=== PATIENT | female | born 1985 | race Caucasian/White ===

== ENCOUNTER → 2018-05-01 | Outpatient (CLI) | payer BC | LOC: MAMMO 15:49 | DX: Z12.31 Encounter for screening mammogram for malignant neoplasm of breast (principal) ==

== ENCOUNTER → 2019-02-13 | Outpatient (CLI) | payer BC ==
[2019-02-13 10:38] LABS: EOS # 0.1 (0.04-0.40); EOS % 2.4 % (1.0-5.0); HEMATOCRIT 42.3 % (37.0-47.0); HEMOGLOBIN 13.5 g/dL (12.5-16.0); LYMPH# 1.5 (1.50-4.00); MEAN CELL VOLUME 90 fl (78-100); MEAN CORPUSCULAR HEMOGLOBIN 29 pg (27-31); MEAN CORPUSCULAR HGB CONC 32 g/dL (33-37); MEAN PLATELET VOLUME 9.4 fl (7.4-10.4); MONO # 0.5 (0.20-0.80); NEU # 3.2 (1.40-6.50); PLATELET COUNT 192 K/mm3 (130-400); RED BLOOD COUNT 4.68 M/mm3 (4.10-5.30); RED CELL DISTRIBUTION WIDTH 12.2 % (11.5-14.5); WHITE BLOOD COUNT 5.4 K/mm3 (4.8-10.8)
[2019-02-13 10:50] LABS: PROTHROMBIN TIME 10.4 SECONDS (9.0-12.0)
[2019-02-13 11:16] LABS: ALBUMIN 4.1 g/dL (3.5-5.0); CALCIUM 9.6 mg/dL (8.3-10.5); POTASSIUM 4.1 mmol/L (3.5-5.1); TOTAL BILIRUBIN 1.2 mg/dL (0.2-1.2); TOTAL PROTEIN 7.4 g/dL (6.4-8.3)
[2019-02-17 09:33] LABS: VITAMIN B1 179 nmol/L (70-180)
== END ==
LOC: LAB 10:22
PROVIDERS: Family Medicine
DX: Z01.419 Encounter for gynecological examination (general) (routine) without abnormal findings (principal); E78.5 Hyperlipidemia, unspecified; Z83.49 Family history of other endocrine, nutritional and metabolic diseases; Z98.84 Bariatric surgery status

== ENCOUNTER → 2019-02-26 | Outpatient (CLI) | payer BC | LOC: RAD 09:54 → MAMMO 10:00 | DX: Z98.84 Bariatric surgery status (principal) ==

== ENCOUNTER → 2019-06-17 | Outpatient (CLI) | payer BC | LOC: LAB 12:39 | DX: L02.91 Cutaneous abscess, unspecified (principal) ==

== ENCOUNTER → 2019-08-19 | Outpatient (CLI) | payer BC | LOC: LAB 16:06 | DX: Z51.81 Encounter for therapeutic drug level monitoring (principal); Z79.899 Other long term (current) drug therapy ==

== ENCOUNTER → 2019-09-23 | Outpatient (CLI) | payer BC ==
[2019-09-23 08:38] LABS: ALBUMIN 4.3 g/dL (3.5-5.0)
[2019-09-23 08:41] LABS: TOTAL PROTEIN 7.7 g/dL (6.4-8.3)
[2019-09-23 08:43] LABS: TOTAL BILIRUBIN 0.8 mg/dL (0.2-1.2)
[2019-09-23 08:46] LABS: DIRECT BILIRUBIN 0.3 mg/dL (0.0-0.5)
== END ==
LOC: LAB 07:25
PROVIDERS: Dermatology
DX: Z51.81 Encounter for therapeutic drug level monitoring (principal); Z79.899 Other long term (current) drug therapy

== ENCOUNTER → 2019-10-27 | Outpatient (CLI) | payer BC ==
[2019-10-27 08:46] LABS: ALBUMIN 4.3 g/dL (3.5-5.0)
[2019-10-27 08:49] LABS: TOTAL PROTEIN 7.6 g/dL (6.4-8.3)
[2019-10-27 08:51] LABS: TOTAL BILIRUBIN 0.5 mg/dL (0.2-1.2)
[2019-10-27 08:54] LABS: DIRECT BILIRUBIN 0.2 mg/dL (0.0-0.5)
== END ==
LOC: LAB 08:23
PROVIDERS: Family Medicine
DX: Z51.81 Encounter for therapeutic drug level monitoring (principal); Z79.899 Other long term (current) drug therapy

== ENCOUNTER → 2020-02-27 | Outpatient (CLI) | payer BC | LOC: LAB 15:55 | DX: Z51.81 Encounter for therapeutic drug level monitoring (principal); Z79.899 Other long term (current) drug therapy; Z20.828 Contact with and (suspected) exposure to other viral communicable diseases ==